=== PATIENT | male | born 1960 | race Native Hawaiian/Other Pacific Islander ===

== ENCOUNTER 2018-11-03 15:21 | Outpatient (CLI) | payer BC ==
[2018-11-03 15:38] LABS: PLATELET COUNT 300 K/uL (142-355)
[2018-11-03 16:06] LABS: POTASSIUM 4.1 mmol/L (3.6-5.2)
== END 2018-11-03 19:45 | disposition home or self-care (01) ==
LOC: LABW 15:21
PROVIDERS: Internal Medicine
DX: I10 Essential (primary) hypertension (principal); Z12.5 Encounter for screening for malignant neoplasm of prostate; E78.00 Pure hypercholesterolemia, unspecified
CPT/HCPCS: 36415; 80053; 80061; 81000; 84153; 84439; 84443; 85027

== ENCOUNTER 2020-10-15 13:16 | Outpatient (CLI) | payer BC, OTHER | END 2020-10-15 22:06 | disposition home or self-care (01) | LOC: INF 13:16 | PROVIDERS: ATTEND Internal Medicine | DX: Z23 Encounter for immunization (principal) | CPT/HCPCS: 96372 ==

== ENCOUNTER 2020-11-06 15:20 | Outpatient (CLI) | payer BC, OTHER | END 2020-11-06 22:03 | disposition home or self-care (01) | LOC: INF 15:20 | PROVIDERS: ATTEND Internal Medicine | DX: Z23 Encounter for immunization (principal) | CPT/HCPCS: 96372 ==

== ENCOUNTER 2022-09-14 10:51 | Outpatient (CLI) | payer BC, OTHER ==
[2022-09-14 11:25] LABS: PLATELET COUNT 251 K/uL (142-355)
[2022-09-14 11:39] LABS: POTASSIUM 4.2 mmol/L (3.6-5.2)
== END 2022-09-14 22:01 | disposition home or self-care (01) ==
LOC: LABW 10:51
PROVIDERS: ATTEND Internal Medicine
DX: R19.7 Diarrhea, unspecified (principal); R05.2 Subacute cough
CPT/HCPCS: 36415; 80053; 81000; 82272; 83630; 85027; 87015; 87045; 87324; 87328; 87329; 87449; 87502; 87899